=== PATIENT | male | born 1940 | race Caucasian/White ===

== ENCOUNTER 2021-04-03 11:08 | Emergency (ER) | payer MEDICARE, MEDICAID, SELFPAY ==
--- NOTE | ~2021-04-03 | CT_ITS ---
EXAMINATION: CT CHEST WITHOUT CONTRAST CLINICAL INFORMATION: Sepsis. Rule out infection. COMPARISON: Previous chest x-ray November 2009 and chest CTA 2008 TECHNIQUE: Multidetector volumetric CT imaging of the chest was done. Axial MIP volume rendering provided. Sagittal and coronal reformatted images were obtained. This CT examination was performed using dose optimization techniques as appropriate, variously including the following: *Automated exposure control *Adjustment of mA and/or kV according to patient size (this includes techniques or standardized protocols for targeted exams where dose is matched to indication/reason for exam; i.e. extremities or head) *Use of iterative reconstruction technique DLP: 416 mGy-cm FINDINGS: LUNGS: There are nodular opacities seen in both lower lobes and larger areas of denser consolidation with air bronchograms suggestive of bilateral lower lobe pneumonia. There are nodular opacities right upper and right middle lobe also suggestive of infection. Largest peribronchial nodular opacity measures 1.0 cm. The left upper lobe is clear. MEDIASTINUM: There is a right jugular port projecting over the SVC. The heart does not appear enlarged. There is no pericardial effusion. There is coronary artery calcification. There are no enlarged hilar or mediastinal lymph nodes. Thoracic aorta is normal in caliber. There is internal mammary lymphadenopathy. PLEURA: There is no pleural effusion. No pleural mass or thickening. AXILLA: No lymphadenopathy. UPPER ABDOMEN: There is an esophageal hernia. OSSEOUS STRUCTURES: There are degenerative changes of the spine. There are degenerative changes at the shoulder joints. There is a T3 vertebral body compression fracture, age indeterminate. This is new in the interval from 2008 to 2009. There is an old sternal fracture. CT/CT chest wo con IMPRESSION: Multilobar pneumonia, greatest in the bilateral lower lobes. Coronary artery calcification. Esophageal hernia.
--- NOTE | ~2021-04-03 | CT_ITS ---
EXAMINATION: CT ABDOMEN AND PELVIS WITHOUT CONTRAST CLINICAL INFORMATION: Sepsis. Vomiting. Obstruction. COMPARISON: Previous CT of the pelvis 1999 TECHNIQUE: Multidetector volumetric imaging was performed from the superior aspect of the liver through the pubic symphysis. Sagittal and coronal reformatted images were obtained on the technologist's workstation. This CT examination was performed using dose optimization techniques as appropriate, variously including the following: *Automated exposure control *Adjustment of mA and/or kV according to patient size (this includes techniques or standardized protocols for targeted exams where dose is matched to indication/reason for exam; i.e. extremities or head) *Use of iterative reconstruction technique DLP: 1226 mGy-cm FINDINGS: LIVER, GALLBLADDER, AND BILIARY TREE: The liver is normal in size, shape, and attenuation. No focal hepatic lesion or biliary ductal dilatation is present. The gallbladder is dilated and measures 4.5 x 4.5 x 13 cm in dimension. There is fluid level seen in the gallbladder. There are small gallstones. There is no biliary duct dilatation. PANCREAS: There is fatty infiltration or atrophy of the pancreas. SPLEEN: Unremarkable. ADRENAL GLANDS: Unremarkable. KIDNEYS AND URETERS: The kidneys are normal in size, shape, and attenuation. No hydronephrosis, hydroureter, or calculi seen. No perinephric stranding. BLADDER: There is a suprapubic tube with balloon in the bladder. Bladder is empty. GASTROINTESTINAL TRACT: There are dilated fluid-filled loops of small bowel. No transition zone is seen. The large bowel does not appear dilated. There is diverticulosis of the colon. ABDOMINAL WALL: There are postsurgical changes to the abdominal wall. There is an umbilical hernia containing fat. LYMPH NODES: Normal. VASCULAR: There is evidence of atherosclerotic disease. The abdominal aorta is normal in caliber. PELVIC VISCERA: There is low-attenuation seen centrally in the prostate gland. Prostate gland does not appear enlarged. OSSEOUS STRUCTURES: There are degenerative changes of the spine. There is a right sacral stimulator lead. CT/CT abdomen pelvis wo con IMPRESSION: Dilated gallbladder with gallstones. If there is clinical concern of cholecystitis, ultrasound or HIDA scan be recommended. Dilated fluid-filled loops of small bowel. Differential would include ileus and obstruction. Suprapubic tube in the bladder satisfactory position. Umbilical hernia containing fat.
--- NOTE | ~2021-04-03 | CT_ITS ---
EXAMINATION: CT HEAD WITHOUT CONTRAST CLINICAL INFORMATION: Fall. Mental status change. Evaluate for hemorrhage. COMPARISON: Previous head CT most recent March 2000 TECHNIQUE: Contiguous axial imaging was performed from the skull base to vertex without intravenous administration of contrast. This CT examination was performed using dose optimization techniques as appropriate, variously including the following: *Automated exposure control *Adjustment of mA and/or kV according to patient size (this includes techniques or standardized protocols for targeted exams where dose is matched to indication/reason for exam; i.e. extremities or head) *Use of iterative reconstruction technique DLP: 635 mGy-cm FINDINGS: There is no evidence of an extra-axial collection. There is no evidence of intra-axial or extra-axial hemorrhage. The ventricles and extra-axial CSF spaces are prominent. The ventricles are dilated out of proportion to the extra-axial CSF spaces questionable for central atrophy versus normal pressure hydrocephalus. Mcfadden-white matter differentiation is normal. No mass, mass effect or infarct is seen. No skull fracture is seen. There is a fluid level in the left maxillary sinus suggestive of sinusitis. CT/CT head/brain wo con IMPRESSION: No acute findings. Question of central atrophy versus normal pressure hydrocephalus. Left maxillary sinusitis.
--- NOTE | 2021-04-03 11:24 | ECG_ITS ---
Test Reason : WEAKNESS Blood Pressure : / mmHG Vent. Rate : 111 BPM Atrial Rate : 111 BPM P-R Int : 134 ms QRS Dur : 078 ms QT Int : 314 ms P-R-T Axes : 047 023 123 degrees QTc Int : 427 ms Sinus tachycardia Nonspecific T wave abnormality Abnormal ECG When compared with ECG of 17-AUG-2009 00:27, Nonspecific T wave abnormality, worse in Inferior leads Nonspecific T wave abnormality now evident in Anterolateral leads Referred By: Sarai James Electronically Signed By:AMEYA MAGALLANES MD
--- NOTE | 2021-04-03 11:31 | ED_ITS ---
HPI - General Adult General Chief complaint: Altered Mental Status Stated complaint: LETHARGY & AMS PER SNF Time Seen by Provider: 04/03/21 11:13 Source: EMS and other ( staff) Mode of arrival: EMS Limitations: no limitations History of Present Illness HPI narrative: 81-year-old male with a past medical history of BPH, essential tremor, TIA, COPD, PVD, depression, anxiety, dysphagia, parkinsons disease, schizophrenia, chronic pain, CKD, obesity, anemia, vitamin-D deficiency, seizure disorder, migraines, insomnia, indwelling suprapubic catheter, hypertension, asthma, GERD, osteoarthritis from a [facility] with complaints of lethargy over the last 24 hours with fever with max temp of a 100 degrees F, vomiting. also noted this morning to have tachycardia with low blood pressure by EMS. Received 500 mL of saline prior to arrival. Patient is a DNR /DNI. Related Data Home Medications Medication Instructions Recorded Confirmed carboxymethylcellulose sodium 1 drp OPHTHALMIC (EYE) DAILY 04/03/21 04/03/21 [TheraTears] cholecalciferol (vitamin D3) 1,250 mcg PO QMONTH 04/03/21 04/03/21 clozapine 100 mg PO BEDTIME 04/03/21 04/03/21 furosemide 20 mg PO DAILY 04/03/21 04/03/21 furosemide 40 mg PO DAILY 04/03/21 04/03/21 gabapentin 100 mg PO Q4H PRN 04/03/21 04/03/21 gabapentin 300 mg PO TID 04/03/21 04/03/21 loratadine 10 mg PO DAILY 04/03/21 04/03/21 lorazepam 0.5 mg PO BID 04/03/21 04/03/21 mirabegron [Myrbetriq] 15 mg PO DAILY 04/03/21 04/03/21 omeprazole 20 mg PO BID 04/03/21 04/03/21 oxybutynin chloride 5 mg PO TID 04/03/21 04/03/21 oxycodone 5 mg PO TID 04/03/21 04/03/21 polyethylene glycol 3350 [Miralax] 17 g PO DAILY 04/03/21 04/03/21 potassium chloride 40 meq PO DAILY 04/03/21 04/03/21 quetiapine 75 mg PO BEDTIME 04/03/21 04/03/21 sertraline 50 mg PO DAILY 04/03/21 04/03/21 sertraline 100 mg PO DAILY 04/03/21 04/03/21 valacyclovir 1 tab PO BID 04/03/21 04/03/21 Allergies Allergy/AdvReac Type Severity Reaction Status Date / Time ampicillin [Ampicillin] Allergy Mild RASH Unverified 06/23/20 14:44 erythromycin base Allergy Mild RASH Unverified 06/23/20 14:44 [Erythromycin Base] Penicillins Allergy Mild RASH, Unverified 06/23/20 14:44 NAUSEA AND VOMITING Sulfa (Sulfonamide Allergy Mild RASH Unverified 06/23/20 14:44 Antibiotics) [Sulfa (Sulfonamides)] daptomycin [DAPTOMYCIN] Allergy Unknown UNKNOWN Unverified 06/23/20 14:44 titanium [TITANIUM] Allergy Unknown UNKNOWN Unverified 06/23/20 14:44 vancomycin [VANCOMYCIN] Allergy Unknown UNKNOWN Unverified 06/23/20 14:44 Review of Systems Review of Systems: Yes Unobtainable due to mental status Neurologic: Denies Abnormal speech present PMFSH Past Medical History Attestation statement: The following information was validated with the patient. Source: old records reviewed and nursing notes reviewed Medical History (Updated 04/03/21 @ 15:14 by Sarai James NP) Above knee amputation of left lower extremity Anemia Anxiety Asthma BPH (benign prostatic hyperplasia) CKD (chronic kidney disease) COPD (chronic obstructive pulmonary disease) Depression Dysphagia Essential tremor GERD (gastroesophageal reflux disease) High cholesterol Hypertension Osteoarthritis Parkinsons PVD (peripheral vascular disease) Schizophrenia Seizure Suprapubic catheter TIA (transient ischemic attack) Social History Social History Advance Directives: Yes Advance Directives Information Provided: Yes Advance Directives on File: No Physical Exam Vital Signs: Vital Signs: Last Vital Signs Temp 98.4 F 04/03/21 13:03 Pulse 81 04/03/21 13:56 Resp 14 04/03/21 13:56 BP 103/61 04/03/21 13:56 Pulse Ox 100 04/03/21 13:03 Body Mass Index 20.9 Const: Other: lethargic rouses to verbal, able to answer brief questions but falls back asleep Limitations: altered mental status HENMT: Head: Yes normal to inspection Ears: hearing grossly normal bilaterally General nose exam: Normal external nose present Face and sinus: Yes normal facial exam Mouth: moist mucous membranes abnormal (tacky MM) Throat: Yes posterior oropharynx normal Eyes: General: appearance normal, both eyes and all related structures Pupils: Equal, round and reactive pupils present Neck: Neck: Yes normal visual inspection Chest: Chest palpation & inspection: normal inspection of the chest Resp: Other: diminished BS Effort & Inspection: normal respiratory effort Cardio: Rate: tachycardic (120-ST) Rhythm: regular rhythm Peripheral pulses: Peripheral pulses 2+ throughout GI: Inspection: Yes normal to inspection Palpation (GI): Soft to palpation and nontender Auscultation: normal bowel sounds Abdomen image: 1. suprapubic catheter present. Slight bleeding noted at the site Back/Spine/Pelvis: Thoracic/Lumbar Spine: thoracic and lumbar spine normal to inspection Skin: General skin exam: no rashes or lesions noted Neuro: Other: diffuse weakness 3/5 UE, RLE LLE absent General: normal sensation to monofilament and Unable to assess gait Cranial nerves: Yes Equal, round and reactive pupils present Speech: No Abnormal speech present Gait exam (Neuro): Unable to assess gait Sensory Exam: Normal double simultaneous stimulation for sensation Extrem: Other: left AKA right lower leg mild swelling with no erythema or warmth. +palpable distal pulse Course Course Course Narrative: 81-year-old male coming from a [facility] with complaints of fever, tachycardia, hypotension, vomiting and lethargy since last evening. On arrival the patient is lethargic but does arouse to verbal to answer some brief questions. He is tachycardic with a blood pressure of 70/40. He did receive 500 mL of normal saline prior to arrival. He is a DNR /DNI will need labs including blood cultures and lactic acid, UA, EKG, COVID screen, CT head/chest/A/P. normal saline bolus 30 cc/kilos ordered. at this time infection suspected. Antibiotics ordered. 1200- called and spoke to Healthcare proxy brother Maco. Patient baseline is oriented, wheelchair bound but they do visit with him and play cards weekly. I explained the patient is critically ill and that likely he is septic from an unknown cause. he confirms the patient is a DNR DNI. we discussed that we will give fluids and then reassess his blood pressure and have a further conversati on at that point about a central line and possible pressors 1245-Patient brought to CT scan with nursing. Mental status declining but maintaining respiratory drive. Fluid bolus still infusing. Brought back to room after CT. Patient now responding to painful stimuli only. Dr García attending aware. Called family with update. informed that patient is continuing to decline. His current blood pressure is still hypotensive despite fluid bolus. we discussed at this point we should consider placing a central line and starting vasopressors. They were hesitant to do this is they are unsure the patient would want this. They asked to call me back in less than 30 minutes with the decision after discussion as a family. 1300- spoke to shoe repair cobbler Dr. Bowden who will come to down to evaluate patient pending families decision in regards to goals of care. 1315- the patient's brother Maco(his healthcare proxy) called me back. At this point they have decided to not place a central line and to hold vasopressors. They would like the patient to be made comfort measures only. Aoc Operations Intelligence Officer gus shaikh. Imaging is still pending, UA pending. Unfortunately the lab lost the patient's labs and so we have to re-draw these. Family will be coming in to see patient. 1420-labs show anemia, leukoctyosis. UA shows UTI. CT chest shows bilateral PNA. CT abd/pelvis Dilated gallbladder with gallstones. Dilated fluid-filled loops of small bowel. Differential would include ileus and obstruction. Suprapubic tube in the bladder satisfactory position. Ct head : no acute finding. Question central atrophy vs normal pressure hydrocephalus [id number] spent at bedside with both HCP and . Lengthy discussion about goals of care. We discussed that they have decided to hold vasopressors and a central line at this time. Currently his blood pressure has actually normalized to 100 systolic. I do expect with time that he will become hypotensive again. We discussed treating the patient with antibiotics, fluids and blood and admitting him but holding vasopressors and a central line. However, we discussed that he likely will continue to decline and the decision for more invasive measures will present itself again. Family tells me that the patient has a very poor quality of life and they do not wish to prolong his suffering. At this point they would like to withhold all care and make him c omfort measures only. We did discuss alternatives and they would like to move forward with MAINTENANCE MAN. entry manager aware as the patient resides in a short-term rehab. We will discuss whether he can return there as MAINTENANCE MAN before transfer back. [address] [place] [address]([facility] will accept patient back on MAINTENANCE MAN measures. Medical Decision Making MDM Narrative Medical decision making narrative: sepsis, UTI, pneumonia, viral syndrome Medical Records Medical records reviewed: Yes I reviewed the patient's medical records. Lab Data Lab results reviewed: Yes I reviewed the patient's lab results. Result diagrams: 04/03/21 13:51 04/03/21 11:33 Labs: Lab Results 04/03/21 04/03/21 04/03/21 Range/Units 11:33 11:33 11:33 WBC (4.8-10.8) X10*3/uL RBC (4.60-5.80) X10*6/uL Hgb (14.0-18.0) g/dl Hct (42-52) % MCV (80-98) fL MCH (27.0-33.0) pg MCHC (31.0-36.0) g/dl RDW (11.0-16.0) % Plt Count (160-400) X10*3/uL MPV (9.4-12.4) fL Immature Gran % (Auto) (0.0-0.4) % Neut % (Auto) (45-73) % Lymph % (Auto) (20-40) % [place] % (Auto) (2-11) % Eos % (Auto) (0-4) % Baso % (Auto) (0-2) % Lymph # (Auto) (1.2-4.9) X10*3/uL [place] # (Auto) (0.1-1.2) X10*3/uL Eos # (Auto) (0.0-0.4) X10*3/uL Baso # (Auto) (0.0-0.2) X10*3/uL Abs Immat Gran (auto) (0.00-0.03) X10*3/uL Absolute Neuts (auto) (2.0-8.3) X10*3/uL Absolute Nucleated RBC (0.0-0.012) X10*3/uL Nucleated RBC % (auto) (0.0-0.2) /100WBC PT (10.8-13.0) SEC INR (0.9-1.1) Sodium 133 L (135-145) mmol/L Potassium 4.6 (3.3-5.1) mmol/L Chloride 97 (96-108) mmol/L Carbon Dioxide 25 (22-29) mmol/L Anion Gap 16 (12-20) BUN 33 H (9-16) mg/dL Creatinine 1.81 H (0.5-1.4) mg/dL Estim Creat Clear Calc 31.8 Estimated GFR 36 POC Glucose (60-115) mg/dL Random Glucose 125 H (60-115) mg/dL Lactic Acid (0.5-2.0) mmol/L Calcium 7.7 L (8.4-10.2) mg/dL Magnesium 1.5 L (1.6-2.6) mg/dL Total Bilirubin 1.2 H (0.0-1.0) mg/dL Direct Bilirubin 0.9 H (0.0-0.5) mg/dL AST 38 H (5-37) U/L ALT 20 (0-40) U/L Alkaline Phosphatase 187 H (39-117) U/L Troponin I High Sens 22.7 (<3.5-35.0) ng/L B-Natriuretic Peptide (<100) pg/mL Total Protein 6.0 L (6.5-8.0) g/dL Albumin 2.7 L (3.5-5.0) g/dL Urine Color Urine Appearance Urine pH (5.0-8.0) Ur Specific [place] (1.005-1.025) Urine Protein (NEG-TRACE) MG/DL Urine Glucose (UA) (NEG) MG/DL Urine Ketones (NEG) MG/DL Urine Blood (NEG) Urine Nitrite (NEG) Ur Leukocyte Esterase (NEG) Urine RBC (0) /HPF Urine WBC (0-4) /HPF Ur Squamous Epith Cells /LPF Calcium Oxalate Crystal /LPF Urine Bacteria /LPF Hyaline Casts /LPF COVID-19 (ISAIAH) Negative (Negative) COVID-19 Clin Com See Note 04/03/21 04/03/21 04/03/21 Range/Units 11:33 11:33 12:04 WBC (4.8-10.8) X10*3/uL RBC (4.60-5.80) X10*6/uL Hgb (14.0-18.0) g/dl Hct (42-52) % MCV (80-98) fL MCH (27.0-33.0) pg MCHC (31.0-36.0) g/dl RDW (11.0-16.0) % Plt Count (160-400) X10*3/uL MPV (9.4-12.4) fL Immature Gran % (Auto) (0.0-0.4) % Neut % (Auto) (45-73) % Lymph % (Auto) (20-40) % [place] % (Auto) (2-11) % Eos % (Auto) (0-4) % Baso % (Auto) (0-2) % Lymph # (Auto) (1.2-4.9) X10*3/uL [place] # (Auto) (0.1-1.2) X10*3/uL Eos # (Auto) (0.0-0.4) X10*3/uL Baso # (Auto) (0.0-0.2) X10*3/uL Abs Immat Gran (auto) (0.00-0.03) X10*3/uL Absolute Neuts (auto) (2.0-8.3) X10*3/uL Absolute Nucleated RBC (0.0-0.012) X10*3/uL Nucleated RBC % (auto) (0.0-0.2) /100WBC PT 16.7 H (10.8-13.0) SEC INR 1.4 H (0.9-1.1) Sodium (135-145) mmol/L Potassium (3.3-5.1) mmol/L Chloride (96-108) mmol/L Carbon Dioxide (22-29) mmol/L Anion Gap (12-20) BUN (9-16) mg/dL Creatinine (0.5-1.4) mg/dL Estim Creat Clear Calc Estimated GFR POC Glucose (60-115) mg/dL Random Glucose (60-115) mg/dL Lactic Acid 2.0 (0.5-2.0) mmol/L Calcium (8.4-10.2) mg/dL Magnesium (1.6-2.6) mg/dL Total Bilirubin (0.0-1.0) mg/dL Direct Bilirubin (0.0-0.5) mg/dL AST (5-37) U/L ALT (0-40) U/L Alkaline Phosphatase (39-117) U/L Troponin I High Sens 20.7 (<3.5-35.0) ng/L B-Natriuretic Peptide 124 H (<100) pg/mL Total Protein (6.5-8.0) g/dL Albumin (3.5-5.0) g/dL Urine Color Urine Appearance Urine pH (5.0-8.0) Ur Specific [place] (1.005-1.025) Urine Protein (NEG-TRACE) MG/DL Urine Glucose (UA) (NEG) MG/DL Urine Ketones (NEG) MG/DL Urine Blood (NEG) Urine Nitrite (NEG) Ur Leukocyte Esterase (NEG) Urine RBC (0) /HPF Urine WBC (0-4) /HPF Ur Squamous Epith Cells /LPF Calcium Oxalate Crystal /LPF Urine Bacteria /LPF Hyaline Casts /LPF COVID-19 (ISAIAH) (Negative) COVID-19 Clin Com 04/03/21 04/03/21 04/03/21 Range/Units 12:53 13:44 13:51 WBC 16.0 H (4.8-10.8) X10*3/uL RBC 2.42 L (4.60-5.80) X10*6/uL Hgb 7.3 L (14.0-18.0) g/dl Hct 22.6 L (42-52) % MCV 93.4 (80-98) fL MCH 30.2 (27.0-33.0) pg MCHC 32.3 (31.0-36.0) g/dl RDW 16.4 H (11.0-16.0) % Plt Count 158 L (160-400) X10*3/uL MPV 10.1 (9.4-12.4) fL Immature Gran % (Auto) 1.3 H (0.0-0.4) % Neut % (Auto) 88.2 H (45-73) % Lymph % (Auto) 7.5 L (20-40) % [place] % (Auto) 2.9 (2-11) % Eos % (Auto) 0.0 (0-4) % Baso % (Auto) 0.1 (0-2) % Lymph # (Auto) 1.2 (1.2-4.9) X10*3/uL [place] # (Auto) 0.5 (0.1-1.2) X10*3/uL Eos # (Auto) 0.0 (0.0-0.4) X10*3/uL Baso # (Auto) 0.0 (0.0-0.2) X10*3/uL Abs Immat Gran (auto) 0.20 H (0.00-0.03) X10*3/uL Absolute Neuts (auto) 14.1 H (2.0-8.3) X10*3/uL Absolute Nucleated RBC 0.000 (0.0-0.012) X10*3/uL Nucleated RBC % (auto) 0.0 (0.0-0.2) /100WBC PT (10.8-13.0) SEC INR (0.9-1.1) Sodium (135-145) mmol/L Potassium (3.3-5.1) mmol/L Chloride (96-108) mmol/L Carbon Dioxide (22-29) mmol/L Anion Gap (12-20) BUN (9-16) mg/dL Creatinine (0.5-1.4) mg/dL Estim Creat Clear Calc Estimated GFR POC Glucose 109 (60-115) mg/dL Random Glucose (60-115) mg/dL Lactic Acid (0.5-2.0) mmol/L Calcium (8.4-10.2) mg/dL Magnesium (1.6-2.6) mg/dL Total Bilirubin (0.0-1.0) mg/dL Direct Bilirubin (0.0-0.5) mg/dL AST (5-37) U/L ALT (0-40) U/L Alkaline Phosphatase (39-117) U/L Troponin I High Sens (<3.5-35.0) ng/L B-Natriuretic Peptide (<100) pg/mL Total Protein (6.5-8.0) g/dL Albumin (3.5-5.0) g/dL Urine Color YELLOW Urine Appearance HAZY Urine pH 6.0 (5.0-8.0) Ur Specific [place] 1.010 (1.005-1.025) Urine Protein NEG (NEG-TRACE) MG/DL Urine Glucose (UA) NEG (NEG) MG/DL Urine Ketones NEG (NEG) MG/DL Urine Blood 2+ H (NEG) Urine Nitrite NEG (NEG) Ur Leukocyte Esterase 2+ H (NEG) Urine RBC 1-4 (0) /HPF Urine WBC 10-14 H (0-4) /HPF Ur Squamous Epith Cells NONE /LPF Calcium Oxalate Crystal 1+ /LPF Urine Bacteria 1+ /LPF Hyaline Casts 0-2 /LPF COVID-19 (ISAIAH) (Negative) COVID-19 Clin Com Imaging Data CT scan - abdomen: Attestation: I personally reviewed and interpreted this imaging study as follows: Radiologist's impression: MPRESSION: Dilated gallbladder with gallstones. If there is clinical concern of cholecystitis, ultrasound or HIDA scan be recommended. Dilated fluid-filled loops of small bowel. Differential would include ileus and obstruction. Suprapubic tube in the bladder satisfactory position. Umbilical hernia containing fat. CT scan - chest: Attestation: I personally reviewed and interpreted this imaging study as follows: Radiologist's impression: IMPRESSION: Multilobar pneumonia, greatest in the bilateral lower lobes. Coronary artery calcification. Esophageal hernia. CT scan - head: Attestation: I personally reviewed and interpreted this imaging study as follows: Radiologist's impression: IMPRESSION: No acute findings. Question of central atrophy versus normal pressure hydrocephalus. Left maxillary sinusitis. ECG Data Attestation: I personally reviewed and interpreted this ECG as follows: Interpretation: sinus tachycardia with a rate of 111, normal RI, normal QRS, nonspecific ST changes Critical Care Time Critical Care Time Critical Care Time: Yes Total Critical Care Time: 120 Attestation: multiple re-evaluations of blood pressure, mental status, discussion with shoe repair cobbler, lengthy discussion with family for end of life decisions Discharge Plan Discharge Clinical Impression: Septic shock, Altered mental state, Pneumonia, Acute UTI, VIKTORIYA (acute kidney injury), Anemia Patient Disposition: Xfer SNF Prescriptions: No Action quetiapine 25 mg tablet 75 mg PO BEDTIME RF: 0 furosemide 40 mg tablet 40 mg PO DAILY RF: 0 clozapine 100 mg tablet 100 mg PO BEDTIME RF: 0 valacyclovir 1 gram tablet 1 tab PO BID RF: 0 sertraline 100 mg tablet 100 mg PO DAILY RF: 0 lorazepam 0.5 mg tablet 0.5 mg PO BID RF: 0 gabapentin 300 mg capsule 300 mg PO TID RF: 0 omeprazole 20 mg capsule,delayed release(DR/EC) 20 mg PO BID RF: 0 furosemide 20 mg tablet 20 mg PO DAILY RF: 0 gabapentin 100 mg capsule 100 mg PO Q4H PRN (Reason: Pain) RF: 0 oxybutynin chloride 5 mg tablet 5 mg PO TID RF: 0 sertraline 50 mg tablet 50 mg PO DAILY RF: 0 oxycodone 5 mg tablet 5 mg PO TID RF: 0 potassium chloride 10 mEq tablet,ER particles/crystals 40 meq PO DAILY RF: 0 Myrbetriq 25 mg tablet extended release 24 hr 15 mg PO DAILY RF: 0 polyethylene glycol 3350 [Miralax] 17 gram Powder In Packet 17 g PO DAILY RF: 0 TheraTears 0.25 % Drops 1 drp OPHTHALMIC (EYE) DAILY RF: 0 loratadine 10 mg Tablet 10 mg PO DAILY RF: 0 cholecalciferol (vitamin D3) 1,250 mcg (50,000 unit) Tablet 1,250 mcg PO QMONTH RF: 0
[2021-04-03 11:40] VITALS: BP 77/48; BP 80/50; PULSE 107; PULSE 115; RESP 20; TEMP 36.6; O2SAT 93; O2SAT 95; BMI 20.9
[2021-04-03] MEDS: ondansetron HCL 4 MG/2 ML VIAL IVPUSH (11:52)
[2021-04-03] MEDS: 0.9 % Sodium Chloride 2,040 ML 2040 ML IV (11:54)
[2021-04-03] MEDS: cefTRIAXone sodium 1 GM in 0.9 % Sodium Chloride 50 ML IV (12:03)
[2021-04-03 12:11] VITALS: BP 76/43; PULSE 96; RESP 18; O2SAT 93
[2021-04-03 12:17] LABS: INTERNATIONAL NORM RATIO 1.4 (0.9-1.1); Prothrombin Time 16.7 SEC (10.8-13.0)
[2021-04-03 12:24] VITALS: BP 72/43; PULSE 92; RESP 18; O2SAT 98
[2021-04-03 12:25] LABS: Alanine Aminotransferase 20 U/L (0-40); Albumin Level 2.7 g/dL (3.5-5.0); Alkaline Phosphatase 187 U/L (39-117); Anion Gap 16 (12-20); Aspartate Amino Transferase 38 U/L (5-37); Bilirubin Direct 0.9 mg/dL (0.0-0.5); Bilirubin Total 1.2 mg/dL (0.0-1.0); Blood Urea Nitrogen 33 mg/dL (9-16); Calcium 7.7 mg/dL (8.4-10.2); Carbon Dioxide 25 mmol/L (22-29); Chloride 97 mmol/L (96-108); Creatinine Clr Calc Pharmacy 31.8; Estimated Glomerular Filt Rate 36; Glucose Random 125 mg/dL (60-115); Magnesium 1.5 mg/dL (1.6-2.6); Potassium 4.6 mmol/L (3.3-5.1); Sodium 133 mmol/L (135-145)
[2021-04-03 12:29] LABS: Troponin-I High Sensitivity 22.7 ng/L (<3.5-35.0)
--- NOTE | 2021-04-03 12:30 | PC.NURSE ---
This RN has been 1:1 with patient since arrival in ED. On arrival patient alert to self, oriented to being in the hospital only but does not know where or what day/year it is. Patient c/o feeling horrible but non specific w/ symptoms. Patient hypotensive w/o improvement from IV fluids, SENIOR LINUX SYSTEMS ADMINISTRATOR aware. suprapubic catheter leaking blood around it and also ?urine, no s/s infection. Wounds on buttocks. Around 1230 patient has become increasingly altered, more sleepy, only opening eyes to verbal stimuli, SENIOR LINUX SYSTEMS ADMINISTRATOR aware. Patient assited to CT monitored by this RN. BP did improve into 90's while laying flat on CT table. Patient no longer responding by opening eyes. Patient reassessed by SENIOR LINUX SYSTEMS ADMINISTRATOR.
[2021-04-03 12:50] LABS: COVID-19 Test Negative (Negative)
[2021-04-03 12:54] VITALS: BP 80/48; PULSE 88; RESP 16; O2SAT 95
--- NOTE | 2021-04-03 12:58 | PHA.MEDREC ---
Pharmacy Consult ? Medication Reconciliation Pharmacy has completed the medication reconciliation. There are no remarkable issues for provider's attention. Patient had a list from [facility]. Barbara Rosa, AngelaD
[2021-04-03 13:03] VITALS: BP 84/54; PULSE 83; RESP 12; TEMP 36.9; O2SAT 100
[2021-04-03 13:09] LABS: Glucose, Whole Blood 109 mg/dL (60-115)
[2021-04-03] MEDS: Magnesium Sulfate/H2O 2 GM/50 ML PIGGYBACK IV (13:09)
[2021-04-03] MEDS: Lactated Ringers 1,000 ML 999 ML IV (13:20)
[2021-04-03 13:42] LABS: Troponin-I High Sensitivity 20.7 ng/L (<3.5-35.0)
[2021-04-03 13:50] LABS: B Type Natriuretic Peptide 124 pg/mL (<100)
[2021-04-03 13:53] LABS: MANUAL DIFF FLAG NO
[2021-04-03 13:55] LABS: Glucose Urine UA NEG (NEG); Leukocyte Esterase Urine 2+ (NEG); Nitrite Urine NEG (NEG); UACC Culture Trigger YES; Urine Blood 2+ (NEG); Urine Ketones NEG (NEG); Urine Protein NEG (NEG-TRACE)
[2021-04-03 13:56] VITALS: BP 103/61; PULSE 81; RESP 14
[2021-04-03 13:56] LABS: Basophils Percent Auto 0.1 % (0-2); Hematocrit 22.6 % (42-52); Hemoglobin 7.3 g/dl (14.0-18.0); Imm Gran Pct Auto 1.3 % (0.0-0.4); Lymphocytes Absolute Auto 1.2 X10*3/uL (1.2-4.9); Lymphocytes Percent Auto 7.5 % (20-40); Mean Corpuscular HGB Conc 32.3 g/dl (31.0-36.0); Mean Corpuscular Hemoglobin 30.2 pg (27.0-33.0); Mean Corpuscular Volume 93.4 fL (80-98); Mean Platelet Volume 10.1 fL (9.4-12.4); Monocytes Absolute Auto 0.5 X10*3/uL (0.1-1.2); Monocytes Percent Auto 2.9 % (2-11); Neutrophils Absolute Auto 14.1 X10*3/uL (2.0-8.3); Neutrophils Percent Auto 88.2 % (45-73); Platelet Count 158 X10*3/uL (160-400); Red Blood Count 2.42 X10*6/uL (4.60-5.80); Red Cell Distribution Width 16.4 % (11.0-16.0)
[2021-04-03 13:57] LABS: Appearance Urine HAZY; Color Urine YELLOW
--- NOTE | 2021-04-03 13:57 | PC.NURSE ---
Patient spontaneously opening eyes, moving left ANDREIA, when this RN asked if patients leg is painful he replies yes. Family is now at bedside and patient is awake, opening eyes and holding their hand. BP also improved at this time. labs and urine sample pending. GLASS SANDER at bedside updating family on results
[2021-04-03 14:28] LABS: Bacteria Urine 1+ /LPF; Calcium Oxalate Crystals Urine 1+ /LPF; Hyaline Casts Urine 0-2 /LPF
--- NOTE | 2021-04-03 15:06 | PC.NURSE ---
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
--- NOTE | 2021-04-03 15:10 | PC.NURSE ---
Per WOOD SCIENCE PROFESSOR no more vitals to be taken. Patient is awake, sitting upright and talking with family at bedside. Patient requested and was given water.
--- NOTE | 2021-04-03 15:11 | MHC.CM.ED ---
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 Patient is from [facility]. Referral made to [facility] via [employer] to see if patient can return. Continue to monitor for d/c needs.
--- NOTE | 2021-04-03 16:27 | MHC.CM.ED ---
CM spoke with Preeti liaison at [facility], who is willing to accept pt back. Pt is a LTC resident at the facility. Pt is a DNR/DNI and will be comfort care only, per brother/HCP Maco. Ambulance booked for 5pm. CM to follow for d/c needs.
--- NOTE | 2021-04-03 17:22 | PC.NURSE ---
This PCT took out two IV's, one in left wrist and right AC, emptied catheter bag of 300 ml and changed over to personal clothes for ambulance ride back to facility.
--- NOTE | 2021-04-03 17:45 | PC.NURSE ---
Patient again unresponsive. Resp are even and unlabored. Family at bedside and concerned with patients current states, as he was awake and talking with them while they were visiting. Dr. García into talk with family who would like continue DISTRIBUTION DRIVER and transfer patient back to SNF
== END 2021-04-03 17:53 | disposition skilled nursing facility (03) ==
PROVIDERS: Nurse Practitioner Family; Emergency Provider Emergency Medicine Emergency Medical Services
DX: A41.9 Sepsis, unspecified organism (principal); J18.9 Pneumonia, unspecified organism; N39.0 Urinary tract infection, site not specified; R65.21 Severe sepsis with septic shock; N17.9 Acute kidney failure, unspecified; D64.9 Anemia, unspecified; I12.9 Hypertensive chronic kidney disease with stage 1 through stage 4 chronic kidney disease, or unspecified chronic kidney disease; N18.9 Chronic kidney disease, unspecified; G20 Parkinson's disease; J44.9 Chronic obstructive pulmonary disease, unspecified; Z86.73 Personal history of transient ischemic attack (TIA), and cerebral infarction without residual deficits; Z20.822 Contact with and (suspected) exposure to COVID-19; Z79.899 Other long term (current) drug therapy; Z99.3 Dependence on wheelchair; Z66 Do not resuscitate; Z93.50 Unspecified cystostomy status
CPT/HCPCS: 36415; 70450; 71250; 74176; 80048; 80076; 81001; 81003; 82947; 83605; 83735; 83880; 84484; 85025; 85610; 87040; 87077; 87086; 87186; 87205; 87635; 93005; 96361; 96365; 96366; 96367; 96375; 99284; 99291; 99292; J0696; J2405; J3475